=== PATIENT | female | born 1940 | race Two or more races ===

== ENCOUNTER 2024-05-13 11:03 | Day surgery (SDC) | payer MEDICARE, MEDICAID, SELFPAY ==
[2024-05-11 09:21] LABS: Basophils # (Auto) 0.1 Thou/mm3 (0.0-0.2); Basophils % (Auto) 1 % (0-2.5); Eosinophils # (Auto) 0.1 Thou/mm3 (0.0-0.5); Eosinophils % (Auto) 1 % (0-10); Hematocrit 35.8 % (36.0-46.0); Hemoglobin 11.7 g/dL (12.0-16.0); Immature Granulocytes % (Auto) 0 % (0-0); Immature Granulocytes Auto 0.01 Thou/mm3 (0.00-0.00); Lymphocytes % (Auto) 23 % (10-50); Mean Corpuscular HGB Conc 32.7 g/dl (31.0-37.0); Mean Corpuscular Hemoglobin 30.5 pg (25.0-35.0); Mean Corpuscular Volume 93 fL (80-100); Monocytes # (Auto) 0.7 Thou/mm3 (0.0-0.8); Monocytes % (Auto) 9 % (0-12); Neutrophils # (Auto) 5.6 Thou/mm3 (1.8-7.7); Neutrophils % (Auto) 66 % (37-80); Nucleated Red Blood Cell % 0 /100 WBC (0); Platelet Count 168 Thou/mm3 (140-440); RDW Standard Deviation 43.6 fL (36.4-46.3); Red Blood Count 3.84 Miln/mm3 (4.00-5.20); White Blood Count 8.5 Thou/mm3 (3.6-11.0)
[2024-05-11 09:46] LABS: Anion Gap 9 (7-16); BUN/Creatinine Ratio 31 Ratio (12-20); Blood Urea Nitrogen 34 mg/dL (9-23); Calcium 9.7 mg/dL (8.3-10.6); Carbon Dioxide 29.5 mMol/L (20.0-31.0); Chloride 103 mMol/L (98-107); Creatinine (Component) 1.1 mg/dL (0.6-1.3); Glucose 108 mg/dL (74-106); Osmolality,Calculated 289 (275-295); Potassium 4.1 mMol/L (3.4-5.1); Sodium 141 mMol/L (136-145); eGFR 49 See Note
[2024-05-11 10:49] LABS: Partial Thromboplastin Time 27.1 Seconds (22.0-36.0); Prothrombin Time 11.2 Seconds (9.0-12.2)
[2024-05-13] VITALS (8 sets, daily range): BP systolic 111–124; BP diastolic 42–70; PULSE 60–70; RESP 13–18; TEMP 36.6–36.7; O2SAT 93–97; BMI 30.1
[2024-05-13] MEDS: VANCOMYCIN/NS 1 GM IVPB 200 ML IV (12:53)
--- NOTE | 2024-05-13 14:33 | PC.NURSE ---
called MD to inform him that PT is itchy on her right forearm with small red/pink spots that are itchy. MD said no medication is necessary
--- NOTE | 2024-05-13 14:48 | PC.NURSE ---
IV vancomycin is completed, will get pt ready for discharge
--- NOTE | 2024-05-17 10:00 | ESOP_ITS ---
RE: KERRI BILLY : 1940 DATE OF OPERATION: 05/13/2024 PROCEDURE PERFORMED: Removal and replacement of multi-lead, SERVICE PARTS COORDINATOR defibrillator generator, CPT 70732. PREOPERATIVE DIAGNOSIS: Status post SERVICE PARTS COORDINATOR defibrillator implantation, elective replacement indicator battery depletion. POSTOPERATIVE DIAGNOSIS: Successful removal and replacement of multi-lead SERVICE PARTS COORDINATOR cardiac resynchronization therapy automatic implantable cardiac defibrillator generator. HISTORY AND INDICATIONS: The patient is an 84-year-old elderly female with a longstanding history of nonischemic cardiomyopathy, chronic systolic heart failure, who underwent SERVICE PARTS COORDINATOR defibrillator implantation in 2019, has had elective replacement indicators with battery depletion. She is dependent on the device. Hence, removal and replacement of multi-lead ICD, SERVICE PARTS COORDINATOR defibrillator generator was recommended. SEDATION: Conscious sedation. DESCRIPTION OF PROCEDURE: The patient was brought to cardiac catheterization laboratory. She was given conscious sedation with 2 mg versed and 100 mcg fentanyl for sedation. Left subclavian area was prepared in sterile fashion. 1% Xylocaine local anesthesia was given. Linear incision was made with a blunt dissection. The pocket was opened and defibrillator generator was exposed. The generator was then removed successfully. Subsequently, the thresholds of atrial, ventricular RV, and high voltage leads were measured. After appearing satisfactory threshold, the new generator by [employer] multi-lead SERVICE PARTS COORDINATOR defibrillator generator attached to the leads was pushed into the pocket, secured to the pectoralis fascia with 2-0 silk suture. Subcutaneous tissue was closed using 2-0 chromic continuous suture. Skin was closed using diana. The patient tolerated the operation well. No complications. ESTIMATED BLOOD LOSS: Less than 5 mL. The device that is implanted today is [employer] [place] Heart Failure. Serial number is [id number]. The device that is removed, a Medtronic device, implanted on 07/21/2018. Serial number is [id number]. The atrial lead is Medtronic [id number] implanted in 2010, [id number], ventricular lead is RV lead is 6947 Medtronic, implanted in 07/2018. The LV lead is Medtronic, implanted 07/21/2018. Serial number is [id number]. Thresholds: Atrial threshold is 0.5 volts and RV threshold 1.3 volts, LV threshold is 22 volts. The lead impedance atrium is 500, RV lead is 630, LV lead is 1100. The device is programmed to rate of 60 to 130 DVD and 2 zones were programmed for therapy. High voltage impedance is 42. FINAL SUMMARY: Successful removal and replacement of multi-lead SERVICE PARTS COORDINATOR defibrillator ICD generator. No complication. DT: 08:34:20 TT: 09:53:00 Ref: [id number] - TID: [id number]
--- NOTE | 2024-05-18 08:12 | ESOP_ITS ---
RE: KERRI BILLY : 1940 DATE OF OPERATION: 05/13/2024 PROCEDURE PERFORMED: 1. Removal and replacement of VACUUM APPLICATOR OPERATOR defibrillator, multilead VACUUM APPLICATOR OPERATOR defibrillator generator, CPT code 88084. 2. Conscious sedation, 30-minute duration. DIAGNOSIS: Status post VACUUM APPLICATOR OPERATOR defibrillator implantation for chronic systolic heart failure, pacemaker dependency. HISTORY AND INDICATIONS: The patient is an 84-year-old female with a known history of ischemic and nonischemic cardiomyopathy, chronic systolic heart failure, ejection fraction 20% who underwent VACUUM APPLICATOR OPERATOR defibrillator implantation, found to have elective replacement indicators for removal and replacement of VACUUM APPLICATOR OPERATOR defibrillator, multilead defibrillator generator under local anesthesia and moderate sedation. ANESTHESIA: Conscious sedation under local anesthesia. DESCRIPTION OF PROCEDURE: The patient was brought to cardiac catheterization laboratory where she was given 2 mg Versed for sedation. Left subclavian area was prepared in sterile fashion and given 1% Xylocaine for local anesthesia. Linear incision made subcalvian area and pocket was eopened. Hemostasis was secured. The defibrillator generator was exposed. Capsule was resected. Generator was explanted successfully. A new VACUUM APPLICATOR OPERATOR defibrillator by [employer] was attached to the lead, this was an MRI safe device. Atrial ventricular and left ventricular lead were attached. Threshold was found to be excellent. After obtaining satisfactory threshold, the lead was then attached to the generator. Generator was placed in the pocket, secured to the pectoral fascia with 2-0 silk suture. Subcutaneous tissue was closed using 2-0 chromic continuous sutures. Skin was closed using diana. The patient tolerated the operation very well._ that is implanted today is manufactured by [employer]. The CRTD multilead degenerator defibrillator heart failure device. Model number is [place] heart failure HF. The serial number is [id number]. in place are Medtronic leads. Atrial lead is 5076. The [place] [id number], initially implanted on 01/10/2011. The ventricle lead is Medtronic high voltage lead, _serial number is [id number], initially implanted on 07/21/2017_ The LV lead is Medtronic. Model number is 4298. Serial number is [id number], implanted on 07/21/2017 _ The high voltage impedance is 42. The atrial threshold is 0.5 volts, right ventricle threshold is 1.3, LV threshold 2.3, signal amputated P wave is 1.6, R wave 11 millivolts, lead impedance _RV lead is 630, LV lead is 1100. The device is programmed on DDD mode rate of 60 to 130. The explanted device is manufactured by [employer] that was initially implanted on 07/21/2017. SUMMARY OF FINDINGS: Successful removal and replacement dual chamber in lead VACUUM APPLICATOR OPERATOR defibrillator generator. No complications with the procedure. Estimated blood loss less than 5 mL. ANTIBIOTIC USED: Preop antibiotic with Ancef 1 g, post procedure vancomycin 1 g. She will be discharged to home on Keflex 500 b.i.d. for one week. DT: 00:56:54 TT: 02:52:00 Ref: [id number] - TID: [id number]
== END 2024-05-13 15:00 | disposition home or self-care (01) ==
PROVIDERS: PCP Nurse Practitioner Family; Referring Provider Internal Medicine Cardiovascular Disease; Visit Provider Internal Medicine Cardiovascular Disease
PROC: (CPT 33264; principal; 2024-05-13 12:00)
DX: I50.22 Chronic systolic (congestive) heart failure (principal); I42.8 Other cardiomyopathies
CPT/HCPCS: 33264; 36415; 80048; 85025; 85610; 85730; 99152; 99153; A4649; C1882; J0171; J0461; J0690; J2250; J2310; J2371; J3010; J3370; J3490